=== PATIENT | female | born 1965 | race Caucasian/White ===

== ENCOUNTER 2020-06-25 05:41 | Observation (INO) ==
--- NOTE | 2020-06-09 13:13 | PAT Medication Instructions ---
Medication Instructions Date of Service June 09, 2020 Home Medications Ca carb-Ca gluc-Mg ox-Mg gluco [Calcium Magnesium] 1 tab PO QAM ascorbic acid (vitamin C) [Vitamin C] 2 cap PO BID milk zeemgdm-CJK-ekgixx-turmer [Liver Complex] 1 tab PO BID multivitamin with minerals [Vitality Stress Pack For Women] 1 pkg PO QAM STOP taking 2 weeks before surgery milk mamnbty-DMO-znhcmd-turmer [Liver Complex] 1 tab PO BID DO NOT take the morning of surgery Ca carb-Ca gluc-Mg ox-Mg gluco [Calcium Magnesium] 1 tab PO QAM ascorbic acid (vitamin C) [Vitamin C] 2 cap PO BID multivitamin with minerals [Vitality Stress Pack For Women] 1 pkg PO QAM Take evening before surgery ascorbic acid (vitamin C) [Vitamin C] 2 cap PO BID OTHERWISE NOTHING TO EAT OR DRINK AFTER MIDNIGHT Other Notes If you have any questions please call us at [phone] or [phone] or [phone] or [phone]
--- NOTE | 2020-06-09 13:25 | Anesthesiology Consultation ---
Date of Service June 09, 2020 Assessment & Plan (1) Encounter for pre-operative examination: Chart Review Chart Review: Acceptable Risk for Surgery (pending preop Covid testing ) and Patient seen in Pre Admission Testing Per PAT appt on 06/09/20, pt resides in [facility]. Travels to [facility] for medical appts. No other travel. Wears mask in public. No known Covid positive contacts or Covid related symptoms. Scheduled for preop Covid testing scheduled 06/22/20. Educated on importance of self quarantining, social distancing and wearing mask in public both for the patient and household contacts. Teaching & Discussion Pre-Anesthesia Teaching/Discussion Notes: Instructed NPO after midnight before surgery,except medications with 15 cc of water. Medication instructions provided according to the [facility] guidelines. History Surgery Operation Date: 06/25/20 09:00 Proposed Procedures p Hysteroscopy Polypectomy w/Myosure - Kala Daniel MD s Dilation and Curettage - Kala Daniel MD Height/Weight Height: 5 ft 5 in Weight: 81.2 kg Allergies Allergy/AdvReac Type Severity Reaction Status Date / Time No Known Allergies Allergy Verified 06/09/20 12:47 Medications Home Medications Medication Instructions Recorded Confirmed Last Taken Ca carb-Ca gluc-Mg ox-Mg gluco 1 tab PO QAM 06/09/20 06/09/20 Unknown [Calcium Magnesium] ascorbic acid (vitamin C) [Vitamin 2 cap PO BID 06/09/20 06/09/20 Unknown C] milk uojtohd-ISS-ucshhm-turmer 1 tab PO BID 06/09/20 06/09/20 Unknown [Liver Complex] multivitamin with minerals 1 pkg PO QAM 06/09/20 06/09/20 Unknown [Vitality Stress Pack For Women] Past Medical History Medical History Anxiety Stable and controlled Heavy period Hypertension No meds needed per patient Exercise / Class Metabolic Activity II 4-5 Yardwork/Stairs/Walk up hill (one flight of stairs - no chest pain or SOB) Past Surgical History Surgical History [place] teeth extracted Past Anesthesia History No Family Hx of Anesthesia Complications No previous history of anesthesia History of PONV Hx of Motion Sickness (in a boat ) Social History Smoking Status: Never smoker Do You Dip or Chew Tobacco: No Hx Alcohol Use: No Hx Substance Use: No substance use type: does not use Review of Systems Occ snoring- no recent issues Patient denies chest pain, shortness of breath, dyspnea on exertion, reflux, cough, wheezing, palpitations. No hx of seizures, stroke, RI. No hx of blood clots or blood transfusions Physical Exam Vital Signs Last Vital Signs Temp 36.5 C 06/09/20 12:56 Pulse 78 06/09/20 12:56 Resp 18 06/09/20 12:56 BP 181/119 H 06/09/20 12:56 Pulse Ox 97 06/09/20 12:56 Manual BP= 178/100 (BP usually 160s systolically- did recommend patient get set up with PCP in near future to discuss HTN) Constitutional no acute distress ENMT Mouth: no TMJ clicking Thyromental Distance: > or= 3.5 Finger Breadths (3.5) Mallampati Class: I Full dentures on top and bottom Neck + limited neck extension Respiratory normal respiratory effort; no respiratory distress Auscultation: lungs clear to auscultation bilaterally; no wheezes Cardiovascular Rate/Rhythm: regular rate and regular rhythm Heart Sounds: no murmur Vessels: no carotid bruit Musculoskeletal Spine: no pain with cervical ROM Neurologic moves all extremities Psychiatric Orientation: alert Testing Laboratory Results 06/09/20 13:50 06/09/20 13:50 PT 10.9 Seconds (9.0-12.0) 06/09/20 13:50 INR 1.0 (0.9-1.1) 06/09/20 13:50 APTT 29.3 Seconds (21.0-31.0) 06/09/20 13:50 Blood Type A Positive 06/09/20 13:50 Antibody Screen NEGATIVE 06/09/20 13:50 06/09/20= AST: 17 ALT: 25 ALK PHOS: 63 Electrocardiogram Date: 06/09/20 Normal sinus rhythm with sinus arrhythmia at 63 bpm.
[2020-06-09 15:50] LABS: Basophils # (auto) 0.02 K/uL (0-0.2); Basophils % (auto) 0.4 %; Eosinophils # (auto) 0.08 K/uL (0-0.5); Eosinophils % (auto) 1.6 %; Hematocrit (blood only) 39.8 % (37-47); Hemoglobin 12.8 g/dL (12.0-16.0); Immature Granulocytes # (auto) 0.01 K/uL (0.00-0.02); Immature Granulocytes % (auto) 0.2 %; Lymphocytes # (auto) 1.41 K/uL (1.2-3.4); Lymphocytes % (auto) 28.3 %; Mean Corpuscular Hemoglobin 25.8 pg (25-34); Mean Corpuscular Hgb Conc 32.2 g/dL (32-36); Mean Corpuscular Volume 80.2 fL (80-100); Mean Platelet Volume 11.6 fL (7.4-10.4); Monocytes # (auto) 0.36 K/uL (0.11-0.59); Monocytes % (auto) 7.2 %; Neutrophils % (auto) 62.3 %; Platelet Count 219 K/uL (130-400); RDW Standard Deviation 41.1 fL (36.4-46.3); Red Blood Count 4.96 M/uL (4.2-5.4); White Blood Count 4.98 K/uL (4.8-10.8)
[2020-06-09 16:07] LABS: Partial Thromboplastin Ratio 1.1; Partial Thromboplastin Time 29.3 Seconds (21.0-31.0); Prothrombin Time 10.9 Seconds (9.0-12.0)
[2020-06-09 16:15] LABS: Potassium 4.1 mmol/L (3.5-5.1)
[2020-06-09 16:16] LABS: BUN Creatinine Ratio 16.7 (10-20); Calcium 9.3 mg/dl (8.5-10.1); Creatinine Clr Calc Pharmacy 102.9 ml/min; Est GFR (African American) 115.8; Est GFR (Non-African American) 99.9
[2020-06-09 16:20] LABS: Alanine Aminotransferase 25 U/L (12-78); Alkaline Phosphatase 63 U/L (45-117); Aspartate Aminotransferase 17 U/L (15-37); Bilirubin Direct < 0.1 mg/dl (0-0.2); Bilirubin,Total 0.3 mg/dl (0.2-1); Total Protein 7.8 gm/dl (6.4-8.2)
--- NOTE | 2020-06-09 19:26 | Electrocardiogram Report ---
Test Reason : Blood Pressure : / mmHG Vent. Rate : 063 BPM Atrial Rate : 063 BPM P-R Int : 176 ms QRS Dur : 080 ms QT Int : 390 ms P-R-T Axes : 042 043 012 degrees QTc Int : 399 ms Normal sinus rhythm with sinus arrhythmia Normal ECG No previous ECGs available Confirmed by Anatoliy Osman ([id number]) on 06/09/2020 7:26:19 PM Referred By: Kala Daniel Confirmed By:Isak Osman
[2020-06-25] MEDS ORDERED: SODIUM CHLORIDE 0.9% 1000ML 1,000 ML IV SCH (06:00)
[2020-06-25] MEDS ORDERED: LR 15ML/HR IV SCH (06:00)
[2020-06-25] MEDS ORDERED: ACETAMINOPHEN 1000 MG/100 ML IV IV ONE (06:27)
[2020-06-25] MEDS ORDERED: ONDANSETRON INJ 2 MG/ML 2 ML VIAL ONE (06:36)
[2020-06-25] MEDS ORDERED: PROPOFOL IV EMULSION 10 MG/ML 20 ML VIAL IV ONE (06:36)
[2020-06-25] MEDS ORDERED: MIDAZOLAM HCL 1 MG/ML 2ML VIAL ONE (06:36)
[2020-06-25] MEDS ORDERED: DEXAMETHASONE SOD INJ 4 MG/ML VIAL ONE (06:36)
[2020-06-25] MEDS ORDERED: LIDOCAINE HCL 2% 2 ML VIAL/AMP(20MG/ML) INFIL ONE (06:36)
[2020-06-25] MEDS ORDERED: fentaNYL citrate 100 MCG/2 ML VIAL ONE (06:36)
[2020-06-25] MEDS ORDERED: SILVER NITR/POTASSIUM NITRATE APPLICATOR ONE (06:51)
[2020-06-25] MEDS ORDERED: miSOPROStoL 200 MCG TAB ONE (06:51)
[2020-06-25] MEDS ORDERED: FERRIC SUBSULFATE 8 GM VIAL ONE (06:51)
[2020-06-25] MEDS ORDERED: METHYLERGONOVINE MALEATE 0.2 MG/ML AMP ONE (06:51)
[2020-06-25] MEDS ORDERED: ONDANSETRON INJ 2 MG/ML 2 ML VIAL IV PRN ×3 (06:58→13:00)
[2020-06-25] MEDS ORDERED: MEPERIDINE HCL 25 MG/ML CARP/VIAL IV PRN (06:58)
[2020-06-25] MEDS ORDERED: ATROPINE SULFATE 0.1 MG/ML 10ML SYR IV PRN (06:58)
[2020-06-25] MEDS ORDERED: fentaNYL citrate 100 MCG/2 ML VIAL IV PRN (06:58)
[2020-06-25] MEDS ORDERED: HYDROmorphone INJ 1 MG/ML SYRINGE IV PRN (06:58)
[2020-06-25] MEDS ORDERED: PHENYLEPHRINE 100MCG/ML 5ML SYR IV PRN (06:58)
--- NOTE | 2020-06-25 07:00 | History & Physical Bridge Note ---
Date of Service June 25, 2020 History & Physical Bridge Note I have examined the patient, reviewed the History & Physical and in the interval since the performance of the History & Physical I have noted the following changes of clinical significance: no changes noted
[2020-06-25] MEDS ORDERED: GLYCOPYRROLATE 0.2 MG/ML VIAL ONE (07:18)
[2020-06-25] MEDS ORDERED: PHENYLEPHRINE 100MCG/ML 5ML SYR ONE (07:18)
[2020-06-25] MEDS ORDERED: KETOROLAC 30 MG/ML VIAL ONE (08:06)
--- NOTE | 2020-06-25 08:12 | Post Operative Brief Note ---
Immediate Post Op Note v1 Date of Surgery June 25, 2020 Pre & Post Diagnosis Operation Date: 06/25/20 07:00 Pre-Op Diagnosis: Abnormal Uterine Bleeding Endometrial Polyp Post-Op Diagnosis: Abnormal Uterine Bleeding Endometrial Polyp I identified the patient and participated in the time-out.: Yes Procedure Operation Date: 06/25/20 07:00 Actual Procedures p Evaluation Under Anesthesia, Hysteroscopy Polypectomy with Myosure(Not Applicable) - Kala Daniel MD s Dilation and Curettage(Not Applicable) - Kala Daniel MD Surgeon Kala Daniel MD Recovery Auditor RAMON Sweeney Estimated Blood Loss 10 Findings Consistent with Post-Op Diagnosis Anesthesia Type MAC Complications none Disposition Accompanied Patient To Recovery: Yes Disposition: Recovery Room
[2020-06-25] MEDS ORDERED: METOCLOPRAMIDE HCL INJ 5 MG/ML 2 ML VIAL IV PRN (08:30)
[2020-06-25] MEDS ORDERED: ACETAMINOPHEN 500 MG TAB PO PRN (08:30)
[2020-06-25] MEDS: LABETALOL HCL IV 5 MG/ML 20ML IV PRN ×3 (08:45→08:56)
[2020-06-25] MEDS ORDERED: HydrALAZINE HCL 20 MG/ML VIAL IV STA ×2 (09:07→09:35)
[2020-06-25] MEDS ORDERED: HydrALAZINE HCL 20 MG/ML VIAL ONE (09:08)
--- NOTE | 2020-06-25 09:33 | Anesthesiology Progress Note ---
Date of Service June 25, 2020 Anesthesia Post Procedure Vital Signs Vital Signs: Temp Pulse Pulse Resp BP BP Pulse Ox 06/25/20 09:20 36.4 C L 69 12 163/96 H 97 06/25/20 09:10 61 18 180/99 H 95 06/25/20 09:00 63 24 159/98 H 95 06/25/20 08:50 67 26 H 169/100 H 96 06/25/20 08:40 69 24 159/103 H 100 06/25/20 08:30 71 20 146/97 H 99 06/25/20 08:23 36.4 C L 75 14 153/98 H 100 06/25/20 06:07 36.6 C 69 16 184/109 H 97 Transfer of Care Handoff Completed per policy Notes Mental Status: alert / awake / arousable Patient Amnestic to Procedure: Yes Nausea / Vomiting: adequately controlled Pain: adequately controlled Airway Patency, RR, SpO2: stable & adequate BP & HR: stable & adequate and see Notes below Hydration State: stable & adequate Anesthetic Complications: no major complications apparent and Pt Satisfied with anesthetic care Notes: The patient has untreated HTN. She was given labetalol and hydralazine in PACU. Her BP is elevated but stable. The patient was encouraged to follow up with her PCP for BP management.
[2020-06-25] MEDS ORDERED: METOPROLOL TARTRATE 1 MG/ML VIAL IV STA (09:59)
[2020-06-25] MEDS ORDERED: METOPROLOL TARTRATE 1 MG/ML VIAL IV ONE (10:07)
[2020-06-25] MEDS ORDERED: LISINOPRIL/HCTZ 10/12.5MG TAB PO SCH (10:45)
--- NOTE | 2020-06-25 10:56 | History & Physical Report ---
Date of Service June 25, 2020 Assessment & Plan (1) Chest pain: (2) Uncontrolled hypertension: Admit patient to med/telemetry Obtain CBC, CMP, magnesium, troponin, CK-MB, TSH, d dimer obtain echocardiogram b/l venous doppler lower ext 2/2 to edema/pain Start 2 med regimen with Lisinopril/HCTZ 20/12.5mg Labetolol 5mg Q6h prn (3) Status post D&C: POD #0 D&C, hysteroscopy with polypectomy by Dr. Thacker will consult ALCOHOLIC COUNSELOR for post op management/pain control DVT prophylaxis: SCDS Disposition: admit to med tele, rule out ACS, treat uncontrolled HTN Follow up: Patient does not follow with PCP and treats with home herbal remedies. She will need to be established in outpatient setting at discharge Patient was seen and examined in collaboration with Dr. Bashir, please see addendum History of Present Illness Chief Complaint: Uncontrolled hypertension postoperatively and left-sided chest pain. Primary Care Provider: NO PCP This is a 55-year-old [facility] female who has a significant past medical history of uncontrolled hypertension, anxiety, dysfunctional uterine bleeding who presents to [facility] today for elective D&C, [facility] Patient tolerated the procedure well; however, postoperatively patient remained significantly hypertensive despite attempts to reduce blood pressure with IV antihypertensives. Patient does not take any prescription medications at baseline and takes homemade herbal remedies. She states at baseline her blood pressure is typically systolically 160-1 80 over 90s to 100s. She does not monitor her blood pressure on a regular basis. She does not see any primary care provider. In ASU patient did develop left-sided nonradiating chest discomfort at approximately 9:50 AM and lasted for 20 minutes. Currently chest pain has resolved. She described it as an ache/heaviness. She does admit to feeling similar chest discomfort in past but is unsure during which scenario this occurred. She denies any associated shortness of breath, diaphoresis, nausea, dizziness, lightheadedness, headache, change in vision, change in hearing. Postoperatively she does elicit some mild lower abdominal discomfort but denies any fever, chills, sweats, palpitations, emesis, dysuria, increased urgency or frequency with urination, melena, medic easier. She did urinate postoperatively without difficulty. at bedside states they cook with raw salt and no processed foods. Denies NSAID use. We have been called down by anesthesiology to evaluate for possible admission. is at bedside. In ASU patient's blood pressure was 150s over 100, 160/90 and eventual 181/117. During the latter she did develop left-sided chest discomfort which has since resolved. She has received a total of 50 mg of IV labetalol, last given at 8:56 AM as well as 20 mg of IV hydralazine, last given at 9:43 AM. She also received 5 mg of IV metoprolol around 10:20 AM. EKG was ordered which revealed sinus tachycardia with no ST or T wave changes. Ventricular rate was 101 bpm. Allergies Allergy/AdvReac Type Severity Reaction Status Date / Time No Known Allergies Allergy Verified 06/25/20 05:59 Home Medications Home Medications Medication Instructions Recorded Confirmed Type Calcium Magnesium 1 tab PO QAM 06/09/20 06/25/20 History Liver Complex 1 tab PO BID 06/09/20 06/25/20 History ascorbic acid (vitamin C) 2 cap PO BID 06/09/20 06/25/20 History multivitamin with minerals 1 pkg PO QAM 06/09/20 06/25/20 History Past Med/Surg History Medical History Anxiety Stable and controlled Heavy period Hypertension No meds needed per patient Surgical History [place] teeth extracted Family History Brother Myocardial infarction Father Heart disease Denies family history of Diabetes Stroke Social History Smoking Status: Never smoker Second Hand Exposure: No; Do You Dip or Chew Tobacco: No; Hx Alcohol Use: No Hx Substance Use: No Preferred Language: Lao Communication Ability: Effective Beliefs That Will Affect Care: None Current Living Situation: Family Current Living Situation Comment: family Feels Safe at Home: Yes Safety Concerns: Feels Safe At This Time Assistive Devices: Denture - Upper, Denture - Lower and Glasses Review of Systems Review of Systems: All systems reviewed & are unremarkable except as noted in HPI & below Physical Exam Physical Exam: Constitutional: WD/WN, female, vitals as above, NAD, sitting up in bed, pleasant, answers questions appropriately, minimal eye contact, frequently looking at Head: Normocephalic, Atraumatic Eyes: PERRL, conjunctivae normal, anicteric sclerae ENMT: external ear and nose normal, oropharynx normal Neck: trachea midline, no thyromegaly normal visual inspection Respiratory: normal respiratory effort, lungs clear to auscultation, no wheeze, rales, rhonchi. Normal insp/exp effort, no accessory muscle use Cardiovascular: RRR, 2/6 KATHRYN noted RUSB, no radiation, bilateral lower extremity lymphedema, varicosities noted, bilateral teds in place vessels: no JVD or carotid bruit Chest: normal inspection of chest Abdomen: normal bowel sounds, soft, mild discomfort to palpation to lower abdomen, no rebound, no guarding, no rigidity,no hepatosplenomegaly Musculoskeletal: no cyanosis or clubbing, extremities motor strength 5/5 Skin: no rashes, warm and dry normal turgor Neurologic: PERRL, EOMI, accommodation nl, no face palsy, no dysarthria CN's II-XI intact bilaterally and moves all extremities Psychiatric: A+Ox3, euthymic affect Lymphatic: no cervical or axillary lymphadenopathy : deferred Results & Data Results & Data ([facility]) Vital Signs (Past 12 Hours) Vital Signs Temp Pulse Pulse Pulse Resp BP BP 06/25/20 10:13 94 H 195/114 H 06/25/20 09:20 36.4 C L 69 12 06/25/20 09:10 61 18 06/25/20 09:00 63 24 06/25/20 08:50 67 26 H 06/25/20 08:40 69 24 06/25/20 08:30 71 20 06/25/20 08:23 36.4 C L 75 14 06/25/20 06:07 36.6 C 69 16 184/109 H BP Pulse Ox 06/25/20 10:13 06/25/20 09:20 163/96 H 97 06/25/20 09:10 180/99 H 95 06/25/20 09:00 159/98 H 95 06/25/20 08:50 169/100 H 96 06/25/20 08:40 159/103 H 100 06/25/20 08:30 146/97 H 99 06/25/20 08:23 153/98 H 100 06/25/20 06:07 97 Laboratory Results Preop labs 06/09/2020 CBC: WBC 4.98, H&H 12.8 and 39.8, platelet 219 BMP: Sodium 141, K4.1, chloride 109, BUN 11, creatinine 0.65, LFTs WNL Urine negative Medications Administered Labetalol HCl (Labetalol Hcl Iv 5 Mg/Ml 20ml) 5 mg IV Q5M PRN PRN Reason: PACU Use-SBP>160 or DBP>100 Stop: 06/25/20 14:58 Last Admin: 06/25/20 08:56 Dose: 5 mg Documented by: [id number] Cosigned by: [id number] Admin: 06/25/20 08:50 Dose: 5 mg Documented by: [id number] Cosigned by: [id number] Admin: 06/25/20 08:45 Dose: 5 mg Documented by: [id number] Cosigned by: [id number] Discontinued Medications Ferric Subsulfate (Ferric Subsulfate 8 Gm Vial) Confirm Administered Dose 8 gm .ROUTE .STK-MED ONE Stop: 06/25/20 06:52 Last Admin: 06/25/20 08:20 Dose: Not Given Documented by: [id number] Hydralazine HCl (Hydralazine Hcl 20 Mg/Ml Vial) 10 mg IV NOW STA Stop: 06/25/20 09:08 Last Admin: 06/25/20 09:09 Dose: 10 mg Documented by: [id number] Hydralazine HCl (Hydralazine Hcl 20 Mg/Ml Vial) 10 mg IV NOW STA Stop: 06/25/20 09:36 Last Admin: 06/25/20 09:42 Dose: 10 mg Documented by: [id number] Lactated Ringer's (Lr) 1,000 mls @ 15 mls/hr IV .Q24H MANNY Stop: 06/26/20 05:59 Last Infusion: 06/25/20 07:02 Dose: 0 mls/hr Documented by: [id number] Admin: 06/25/20 06:31 Dose: 15 mls/hr Documented by: [id number] Methylergonovine Maleate (Methylergonovine Maleate 0.2 Mg/Ml Amp) Confirm Administered Dose 0.2 mg .ROUTE .STK-MED ONE Stop: 06/25/20 06:52 Last Admin: 06/25/20 08:20 Dose: Not Given Documented by: [id number] Metoprolol Tartrate (Metoprolol Tartrate 1 Mg/Ml Vial) 5 mg IV NOW STA Stop: 06/25/20 10:00 Last Admin: 06/25/20 10:13 Dose: 5 mg Documented by: [id number] Misoprostol (Misoprostol 200 Mcg Tab) Confirm Administered Dose 200 mcg .ROUTE .STK-MED ONE Stop: 06/25/20 06:52 Last Admin: 06/25/20 08:20 Dose: Not Given Documented by: [id number] Silver Nitrate/Potassium Nitrate (Silver Nitr/Potassium Nitrate Applicator) Confirm Administered Dose 3 appl .ROUTE .STK-MED ONE Stop: 06/25/20 06:52 Last Admin: 06/25/20 08:20 Dose: Not Given Documented by: [id number] ECG Rate (beats per minute): 101 Rhythm: sinus tachycardia Code Status & VTE Plan Code Status Full code VTE Prophylaxis Plan VTE Prophylaxis will be ordered: Yes Reason for no VTE drug order: Contraindicated Supervising Physician Co-Signing Physician Notes Patient is a 55-year-old female with history of hypertension, anxiety, DU B and other medical problems was seen and examined after having D&C and polypectomy today. Patient was noted to be hypertensive and so was admitted for management of hypertension. She denies any significant pain at the site of surgery. Also denies any shortness of breath, dizziness, nausea, abdominal pain. Reports transient left-sided chest discomfort which currently resolved. Please review HPI for complete details of presentation. On exam patient is moderately built and nourished, no apparent distress, normocephalic atraumatic, lungs are clear to auscultation, S1-S2,+ soft murmur, abdomen soft, nontender, normal bowel sounds, alert, awake, oriented, no focal deficits on exam, bilateral lower extremity edema. Patient is admitted for management of hypertensive urgency, chest pain rule out ACS. Patient currently is not on any antihypertensives at home. We will start her on lisinopril, HCTZ. Hydralazine p.o. as needed. Obtain echo. Trend cardiac enzymes and repeat EKG in the morning. ALCOHOLIC COUNSELOR will be consulted for management of post D&C. Monitor for any bleeding issues. I personally reviewed the record. Patient is interviewed and examined at bedside. Patient's care is coordinated with Floresita Muniz PA-C. Please refer to the documentation above for details of patient's presentation and for discussion of other issues.
[2020-06-25 11:27] LABS: Basophils # (auto) 0.01 K/uL (0-0.2); Basophils % (auto) 0.2 %; Eosinophils # (auto) 0.01 K/uL (0-0.5); Eosinophils % (auto) 0.2 %; Hematocrit (blood only) 43.7 % (37-47); Hemoglobin 14.4 g/dL (12.0-16.0); Immature Granulocytes # (auto) 0.02 K/uL (0.00-0.02); Immature Granulocytes % (auto) 0.3 %; Lymphocytes # (auto) 0.63 K/uL (1.2-3.4); Mean Corpuscular Hemoglobin 26.2 pg (25-34); Mean Corpuscular Volume 79.5 fL (80-100); Mean Platelet Volume 10.4 fL (7.4-10.4); Monocytes # (auto) 0.07 K/uL (0.11-0.59); Monocytes % (auto) 1.1 %; Neutrophils # (auto) 5.59 K/uL (1.4-6.5); Neutrophils % (auto) 88.2 %; Platelet Count 175 K/uL (130-400); RDW Coefficient of Variation 14.2 % (11.5-14.5); RDW Standard Deviation 40.8 fL (36.4-46.3); White Blood Count 6.33 K/uL (4.8-10.8)
[2020-06-25 11:51] LABS: Alanine Aminotransferase 24 U/L (12-78); Aspartate Aminotransferase 15 U/L (15-37); BUN Creatinine Ratio 13.5 (10-20); Blood Urea Nitrogen 9 mg/dl (7-18); Calcium 8.8 mg/dl (8.5-10.1); Carbon Dioxide 30 mmol/L (21-32); Chloride 105 mmol/L (98-107); Creatinine Clr Calc Pharmacy 98.1 ml/min; Est GFR (African American) 114.1; Est GFR (Non-African American) 98.5; Glucose 129 mg/dl (70-99); Magnesium 1.9 mg/dl (1.8-2.4); Potassium 3.4 mmol/L (3.5-5.1); Sodium 140 mmol/L (136-145)
[2020-06-25 12:02] LABS: Alkaline Phosphatase 69 U/L (45-117); Bilirubin,Total 0.3 mg/dl (0.2-1); Creatine Kinase MB 1.5 ng/ml (0.5-3.6); Globulin 4.2 gm/dl (2.5-4.0); Total Protein 8.2 gm/dl (6.4-8.2); Troponin I < 0.015 ng/ml (0-0.045)
--- NOTE | 2020-06-25 12:02 | Operative Report (OR) ---
DATE OF OPERATION: 06/25/2020 PREOPERATIVE DIAGNOSES: The patient is a 55-year-old perimenopausal female with history of abnormal uterine bleeding, heavy periods, and pelvic ultrasound suggesting endometrial polyps and fibroids. POSTOPERATIVE DIAGNOSES: The patient is a 55-year-old perimenopausal female with history of abnormal uterine bleeding, heavy periods, and pelvic ultrasound suggesting endometrial polyps and fibroids. PROCEDURE: Examination under anesthesia, hysteroscopy, polypectomy with MyoSure and D and C (dilatation and curettage). SURGEON: Kala Daniel MD SEMICONDUCTOR PROCESSING TECHNICIAN: RAMON Howell ESTIMATED BLOOD LOSS: 10 mL. ANESTHESIOLOGIST: Dr. Rajput. ANESTHESIA: MAC COMPLICATIONS: None. DRAINS: Straight catheter drained 400 mL of clear urine. FINDINGS: Examination under anesthesia revealed anteverted 8- to 10-week size of uterus and nonpalpable adnexa. Stage II cystoecele, rectocele and enterocele. Cervical polyp at the os. Hysteroscopic findings, there were multiple polyps in the endometrial cavity ranging from 0.5 to 1 cm and thickened, irregular endometrium. DESCRIPTION OF PROCEDURE: The patient was taken to the operating room where anesthesia was given without difficulty. She was placed in dorsal lithotomy position, prepared and draped in usual sterile fashion. Straight catheter was used to drain the bladder. A 400 mL of clear urine was obtained. An exam under anesthesia was done with the above findings, gloves were changed, and a speculum was placed in the patient's vagina. Bladder was retracted with El speculum. Cervix was visualized, grasped with a single tooth tenaculum. There was a cervical polyp at the cervical os, which was removed with the polyp forceps and sent to the pathology. Uterus was sounded to be 11 cm and the cervix was dilated with dilators until #7 and then MyoSure hysteroscope was gotten ready, placed in the cervix. Normal saline was started. Uterine cavity was visualized. There were multiple polyps ranging from 0.5 to 1 cm and around the posterior and right uterine rodgers. The left superior uterine wall was also irregularly thickened. Normal tubular ostia were visualized. Then MyoSure Lite device was introduced from hysteroscope. Those polyps were removed, excised completely under direct visualization and no more polyps were seen. Pictures were taken before and after. The hysteroscope was removed, fluid was removed, and then with a sharp curette, uterine cavity was curetted in its entirety and a moderate amount of tissue was obtained, sent to the pathology. The procedure was ended. Single tooth tenaculum was removed. There was no bleeding from tenaculum site neither from the cervix. All instruments were removed. The patient was cleaned, dried, taken out from lithotomy position. She tolerated the procedure well. Sponge and instrument count was correct x3. She was taken to recovery room in stable condition. I attest to the content of the Intraoperative Record and any orders documented therein. Any exceptions are noted below. JIN
[2020-06-25] MEDS ORDERED: POLYETHYLENE (MIRALAX) 17 GM PACK PO PRN (13:00)
[2020-06-25] MEDS ORDERED: ACETAMINOPHEN 325 MG TAB PO PRN (13:00)
[2020-06-25] MEDS ORDERED: ALUMINUM/MAGNESIUM SUSP 30 ML UDC PO PRN (13:00)
--- NOTE | 2020-06-25 13:00 | Ultrasound Report ---
BILATERAL LOWER EXTREMITY VENOUS DOPPLER HISTORY: Bilateral leg edema, pain COMPARISON STUDY: None. FINDINGS: There is normal compressibility, flow, and augmentation within the bilateral lower extremit y deep venous systems. IMPRESSION: No DVT within the right or left lower extremity. ACT 112: Negative or not required by law. Electronically signed by: Escobar Rhoades M.D. 06/25/2020 12:58 PM
[2020-06-25 13:27] LABS: D Dimer 1470 ug/L FEU (0-500)
[2020-06-25] MEDS: LISINOPRIL/HCTZ 20/12.5MG 1 TAB TAB PO SCH (13:30)
[2020-06-25] MEDS ORDERED: LABETALOL HCL IV 5 MG/ML 20ML IV SCH (14:00)
[2020-06-25] MEDS ORDERED: POTASSIUM CHLORIDE 20 MEQ TABCR PO ONE (14:11)
[2020-06-25] MEDS ORDERED: HydrALAZINE 10 MG TAB PO PRN (14:32)
[2020-06-25] MEDS ORDERED: OPTIRAY 320 125ml IV ONE (17:17)
--- NOTE | 2020-06-25 17:44 | CT Scan Report ---
CT ANGIOGRAPHY OF THE CHEST, PULMONARY EMBOLUS PROTOCOL CLINICAL HISTORY: Shortness of breath and chest pain. Evaluate for pulmonary embolus. COMPARISON STUDY: No previous studies for comparison. TECHNIQUE: Following IV administration of 120 mL of Optiray-320, helical axial images of the chest we re obtained utilizing the pulmonary embolus protocol. Maximal intensity projections and sagittal and coronal reformats were viewed on an independent 3D workstation. IV contrast was administered withou t complication. Automated exposure control was utilized for the study. A dose lowering technique wa s utilized adhering to the principles of ALARA. CT DOSE: 249.70 mGy.cm FINDINGS: No pulmonary emboli are identified. Mild cardiomegaly is noted. There is no thoracic aorti c dissection. No pericardial effusion is noted. No enlarged thoracic lymph nodes are noted. The centr al airways are patent. Linear opacities reflect atelectasis. There is no consolidation to suggest pne umonia. There is no pneumothorax or pleural effusion. No suspicious lesions within the bony thorax ar e noted. There are calcifications within the right hepatic dome. IMPRESSION: 1. No pulmonary emboli identified. 2. No acute findings within the chest. 3. Linear opacities within the lungs consistent with atelectasis. 4. Mild cardiomegaly. ACT 112: Negative or not required by law. Electronically signed by: Lucian Gamez M.D. 06/25/2020 5:43 PM
[2020-06-25] MEDS: ASCORBIC ACID 500 MG TAB PO SCH (20:49)
[2020-06-26 06:37] LABS: Hematocrit (blood only) 40.1 % (37-47); Hemoglobin 12.9 g/dL (12.0-16.0); Mean Corpuscular Hemoglobin 25.5 pg (25-34); Mean Corpuscular Hgb Conc 32.2 g/dL (32-36); Mean Corpuscular Volume 79.4 fL (80-100); Mean Platelet Volume 10.6 fL (7.4-10.4); Platelet Count 207 K/uL (130-400); RDW Coefficient of Variation 14.6 % (11.5-14.5); RDW Standard Deviation 41.9 fL (36.4-46.3); Red Blood Count 5.05 M/uL (4.2-5.4); White Blood Count 9.04 K/uL (4.8-10.8)
[2020-06-26 07:08] LABS: BUN Creatinine Ratio 15.5 (10-20); Calcium 9.7 mg/dl (8.5-10.1); Creatinine Clr Calc Pharmacy 100.3 ml/min; Est GFR (African American) 115.3; Est GFR (Non-African American) 99.4; Magnesium 2.1 mg/dl (1.8-2.4); Potassium 3.5 mmol/L (3.5-5.1)
[2020-06-26] MEDS: ASCORBIC ACID 500 MG TAB PO SCH (08:05)
[2020-06-26] MEDS: LISINOPRIL/HCTZ 20/12.5MG 1 TAB TAB PO SCH (08:06)
--- NOTE | 2020-06-26 08:33 | Obstetrical Progress Note ---
Date of Service June 26, 2020 Assessment & Plan Admission and Anticipated Discharge Date Admission Date: June 25, 2020 Subjective Patient is seen and examined. She feels well, no complaints. Wants to go home Pain is under control with oral meds. Ambulating without dizziness Voiding without difficulty Tolerating regular diet with out N&V Flatus + BM neg No vaginal Bleeding is minimal No fever/ chills/ CP/ SOB/ N&V/ Leg pain Vital Signs Temp Pulse Pulse Resp BP Pulse Ox 06/26/20 07:08 37.0 C 81 19 138/83 95 06/26/20 04:13 37.1 C 78 20 123/74 94 06/26/20 00:26 37.0 C 80 19 137/79 95 06/25/20 23:03 89 Lab Results 06/09/20 06/09/20 06/09/20 Range/Units 13:50 13:50 13:50 WBC 4.98 (4.8-10.8) K/uL RBC 4.96 (4.2-5.4) M/uL Hgb 12.8 (12.0-16.0) g/dL Hct 39.8 (37-47) % MCV 80.2 (80-100) fL MCH 25.8 (25-34) pg MCHC 32.2 (32-36) g/dL RDW Std Deviation 41.1 (36.4-46.3) fL RDW Coeff of [place] 14.0 (11.5-14.5) % Plt Count 219 (130-400) K/uL MPV 11.6 H (7.4-10.4) fL Immature Gran % (Auto) 0.2 % Neut % (Auto) 62.3 % Lymph % (Auto) 28.3 % [place] % (Auto) 7.2 % Eos % (Auto) 1.6 % Baso % (Auto) 0.4 % Neut # (Auto) 3.10 (1.4-6.5) K/uL Lymph # (Auto) 1.41 (1.2-3.4) K/uL [place] # (Auto) 0.36 (0.11-0.59) K/uL Eos # (Auto) 0.08 (0-0.5) K/uL Baso # (Auto) 0.02 (0-0.2) K/uL Immature Gran # (Auto) 0.01 (0.00-0.02) K/uL PT 10.9 (9.0-12.0) Seconds INR 1.0 (0.9-1.1) APTT 29.3 (21.0-31.0) Seconds PTT Ratio 1.1 D-Dimer (0-500) ug/L FEU Sodium (136-145) mmol/L Potassium (3.5-5.1) mmol/L Chloride (98-107) mmol/L Carbon Dioxide (21-32) mmol/L Anion Gap (3-11) BUN (7-18) mg/dl Creatinine (0.6-1.2) mg/dl Est Cr Clr Drug Dosing ml/min Est GFR ( Amer) Est GFR (Non-Af Amer) BUN/Creatinine Ratio (10-20) Glucose (70-99) mg/dl Calcium (8.5-10.1) mg/dl Magnesium (1.8-2.4) mg/dl Total Bilirubin (0.2-1) mg/dl Direct Bilirubin (0-0.2) mg/dl AST (15-37) U/L ALT (12-78) U/L Alkaline Phosphatase (45-117) U/L CK-MB (CK-2) (0.5-3.6) ng/ml Troponin I (0-0.045) ng/ml Total Protein (6.4-8.2) gm/dl Albumin (3.4-5.0) gm/dl Globulin (2.5-4.0) gm/dl Albumin/Globulin Ratio (0.9-2) TSH (0.300-4.500) uIu/ml POC Ur Test (NEG) Blood Type A Positive Antibody Screen NEGATIVE 06/09/20 06/09/20 06/25/20 Range/Units 13:50 13:50 11:12 WBC 6.33 (4.8-10.8) K/uL RBC 5.50 H (4.2-5.4) M/uL Hgb 14.4 (12.0-16.0) g/dL Hct 43.7 (37-47) % MCV 79.5 L (80-100) fL MCH 26.2 (25-34) pg MCHC 33.0 (32-36) g/dL RDW Std Deviation 40.8 (36.4-46.3) fL RDW Coeff of [place] 14.2 (11.5-14.5) % Plt Count 175 (130-400) K/uL MPV 10.4 (7.4-10.4) fL Immature Gran % (Auto) 0.3 % Neut % (Auto) 88.2 % Lymph % (Auto) 10.0 % [place] % (Auto) 1.1 % Eos % (Auto) 0.2 % Baso % (Auto) 0.2 % Neut # (Auto) 5.59 (1.4-6.5) K/uL Lymph # (Auto) 0.63 L (1.2-3.4) K/uL [place] # (Auto) 0.07 L (0.11-0.59) K/uL Eos # (Auto) 0.01 (0-0.5) K/uL Baso # (Auto) 0.01 (0-0.2) K/uL Immature Gran # (Auto) 0.02 (0.00-0.02) K/uL PT (9.0-12.0) Seconds INR (0.9-1.1) APTT (21.0-31.0) Seconds PTT Ratio D-Dimer (0-500) ug/L FEU Sodium 141 (136-145) mmol/L Potassium 4.1 (3.5-5.1) mmol/L Chloride 109 H (98-107) mmol/L Carbon Dioxide 28 (21-32) mmol/L Anion Gap 4.0 (3-11) BUN 11 (7-18) mg/dl Creatinine 0.65 (0.6-1.2) mg/dl Est Cr Clr Drug Dosing 102.9 ml/min Est GFR ( Amer) 115.8 Est GFR (Non-Af Amer) 99.9 BUN/Creatinine Ratio 16.7 (10-20) Glucose 86 (70-99) mg/dl Calcium 9.3 (8.5-10.1) mg/dl Magnesium (1.8-2.4) mg/dl Total Bilirubin 0.3 (0.2-1) mg/dl Direct Bilirubin < 0.1 (0-0.2) mg/dl AST 17 (15-37) U/L ALT 25 (12-78) U/L Alkaline Phosphatase 63 (45-117) U/L CK-MB (CK-2) (0.5-3.6) ng/ml Troponin I (0-0.045) ng/ml Total Protein 7.8 (6.4-8.2) gm/dl Albumin 4.0 (3.4-5.0) gm/dl Globulin (2.5-4.0) gm/dl Albumin/Globulin Ratio (0.9-2) TSH (0.300-4.500) uIu/ml POC Ur Test (NEG) Blood Type Antibody Screen 06/25/20 06/25/20 06/25/20 Range/Units 11:12 13:02 Unknown WBC (4.8-10.8) K/uL RBC (4.2-5.4) M/uL Hgb (12.0-16.0) g/dL Hct (37-47) % MCV (80-100) fL MCH (25-34) pg MCHC (32-36) g/dL RDW Std Deviation (36.4-46.3) fL RDW Coeff of [place] (11.5-14.5) % Plt Count (130-400) K/uL MPV (7.4-10.4) fL Immature Gran % (Auto) % Neut % (Auto) % Lymph % (Auto) % [place] % (Auto) % Eos % (Auto) % Baso % (Auto) % Neut # (Auto) (1.4-6.5) K/uL Lymph # (Auto) (1.2-3.4) K/uL [place] # (Auto) (0.11-0.59) K/uL Eos # (Auto) (0-0.5) K/uL Baso # (Auto) (0-0.2) K/uL Immature Gran # (Auto) (0.00-0.02) K/uL PT (9.0-12.0) Seconds INR (0.9-1.1) APTT (21.0-31.0) Seconds PTT Ratio D-Dimer 1470 H* (0-500) ug/L FEU Sodium 140 (136-145) mmol/L Potassium 3.4 L (3.5-5.1) mmol/L Chloride 105 (98-107) mmol/L Carbon Dioxide 30 (21-32) mmol/L Anion Gap 5.0 (3-11) BUN 9 (7-18) mg/dl Creatinine 0.68 (0.6-1.2) mg/dl Est Cr Clr Drug Dosing 98.1 ml/min Est GFR ( Amer) 114.1 Est GFR (Non-Af Amer) 98.5 BUN/Creatinine Ratio 13.5 (10-20) Glucose 129 H (70-99) mg/dl Calcium 8.8 (8.5-10.1) mg/dl Magnesium 1.9 (1.8-2.4) mg/dl Total Bilirubin 0.3 (0.2-1) mg/dl Direct Bilirubin (0-0.2) mg/dl AST 15 (15-37) U/L ALT 24 (12-78) U/L Alkaline Phosphatase 69 (45-117) U/L CK-MB (CK-2) 1.5 (0.5-3.6) ng/ml Troponin I < 0.015 (0-0.045) ng/ml Total Protein 8.2 (6.4-8.2) gm/dl Albumin 4.0 (3.4-5.0) gm/dl Globulin 4.2 H (2.5-4.0) gm/dl Albumin/Globulin Ratio 1.0 (0.9-2) TSH 2.260 (0.300-4.500) uIu/ml POC Ur Test NEG (NEG) Blood Type Antibody Screen 06/26/20 06/26/20 Range/Units 06:13 06:13 WBC 9.04 (4.8-10.8) K/uL RBC 5.05 (4.2-5.4) M/uL Hgb 12.9 (12.0-16.0) g/dL Hct 40.1 (37-47) % MCV 79.4 L (80-100) fL MCH 25.5 (25-34) pg MCHC 32.2 (32-36) g/dL RDW Std Deviation 41.9 (36.4-46.3) fL RDW Coeff of [place] 14.6 H (11.5-14.5) % Plt Count 207 (130-400) K/uL MPV 10.6 H (7.4-10.4) fL Immature Gran % (Auto) % Neut % (Auto) % Lymph % (Auto) % [place] % (Auto) % Eos % (Auto) % Baso % (Auto) % Neut # (Auto) (1.4-6.5) K/uL Lymph # (Auto) (1.2-3.4) K/uL [place] # (Auto) (0.11-0.59) K/uL Eos # (Auto) (0-0.5) K/uL Baso # (Auto) (0-0.2) K/uL Immature Gran # (Auto) (0.00-0.02) K/uL PT (9.0-12.0) Seconds INR (0.9-1.1) APTT (21.0-31.0) Seconds PTT Ratio D-Dimer (0-500) ug/L FEU Sodium 139 (136-145) mmol/L Potassium 3.5 (3.5-5.1) mmol/L Chloride 105 (98-107) mmol/L Carbon Dioxide 27 (21-32) mmol/L Anion Gap 6.0 (3-11) BUN 10 (7-18) mg/dl Creatinine 0.66 (0.6-1.2) mg/dl Est Cr Clr Drug Dosing 100.3 ml/min Est GFR ( Amer) 115.3 Est GFR (Non-Af Amer) 99.4 BUN/Creatinine Ratio 15.5 (10-20) Glucose 114 H (70-99) mg/dl Calcium 9.7 (8.5-10.1) mg/dl Magnesium 2.1 (1.8-2.4) mg/dl Total Bilirubin (0.2-1) mg/dl Direct Bilirubin (0-0.2) mg/dl AST (15-37) U/L ALT (12-78) U/L Alkaline Phosphatase (45-117) U/L CK-MB (CK-2) (0.5-3.6) ng/ml Troponin I (0-0.045) ng/ml Total Protein (6.4-8.2) gm/dl Albumin (3.4-5.0) gm/dl Globulin (2.5-4.0) gm/dl Albumin/Globulin Ratio (0.9-2) TSH (0.300-4.500) uIu/ml POC Ur Test (NEG) Blood Type Antibody Screen PE: General: Alert, orientedx3, NAD CVS: S1S2 RRR Lungs; CTAB Abd: soft, NT, ND, BS+ Incision: Clean, dry, intact Perineum intact, No bleeding Ext; NT, no edema AP: 55 yo s/p EUA, Hysteroscopy, Polypectomy with Myosure and D&C, pod# 1 Admitted by medicine dept for elevated BP's VSS Afebrile doing well All questions were answered Discussed when to call May be discharged in steel manager respect D/C home per medical team Results & Data ([facility]) Vital Signs (Past 12 Hours) Vital Signs Temp Pulse Pulse Resp BP Pulse Ox 06/26/20 07:08 37.0 C 81 19 138/83 95 06/26/20 04:13 37.1 C 78 20 123/74 94 06/26/20 00:26 37.0 C 80 19 137/79 95 06/25/20 23:03 89
[2020-06-26] MEDS ORDERED: MAGNESIUM OXIDE 400 MG TAB PO SCH (09:00)
[2020-06-26] MEDS ORDERED: CEROVITE ADV FORMULA TAB PO SCH (09:00)
[2020-06-26] MEDS ORDERED: CALCIUM CARBONATE 1250MG TAB PO SCH (09:00)
[2020-06-26 11:53] VITALS: BP 146/81; PULSE 74; TEMP 98.1; O2SAT 93
--- NOTE | 2020-06-26 12:00 | Hospitalist Progress Note ---
Date of Service June 26, 2020 Assessment & Plan (1) Chest pain: (2) Uncontrolled hypertension: Not on any antihypertensives at home TSH: Normal Troponin: Negative EKG: No signs of acute ischaemia --ECHO: The left ventricle size is normal. Mild concentric LVH. Left ventricular wall motion is normal. EF 65 to 70%. Trivial muscular VSD near the apex of known hemodynamic significance. The right ventricle is normal in size. Doppler findings do not suggest pulmonary hypertension. Started on lisinopril/HCTZ: 20/12.5mg daily BP better today Advised low salt diet Recommended to be evaluated by Cardiology as outpatient for further evaluation of VSD Elevated D-Dimer: CTA: No pulmonary emboli identified. No acute findings within the chest. Linear opacities within the lungs consistent with atelectasis. Mild cardiomegaly. Venous Doppler:No DVT within the right or left lower extremity. (3) Status post D&C: POD #1 D&C, hysteroscopy with polypectomy by Dr. Thacker Appreciate ADVERTISING MANAGER Input Minimal Vagina bleeding--Expected post procedure DVT Px: SCDs Code Status Full Code Disposition: Plan to discharge home today Admission and Anticipated Discharge Date Admission Date: June 25, 2020 Subjective Patient is seen and examined at bedside Doing well today Denies any significant pain at site of procedure Denies chest pain, shortness of breath, dizziness, nausea, abdominal pain Eager to get discharged Blood pressure is much better today Also denies headache, change in vision Review of Systems Review of Systems: All systems reviewed & are unremarkable except as noted in HPI & below Physical Exam Physical Exam: Physical Exam: Vitals signs as noted above General Appearance:Moderately built and nourished, no apparent distress Head: normocephalic, Atraumatic Eyes: normal inspection, EOMI Neck: supple, Trachea midline Respiratory/Chest: Normal breath sounds, CTA Cardiovascular: S1, S2, + Systolic murmur Abdomen/GI:Soft, Non tender, Bowel sounds present Extremities/Musculoskelatal:normal inspection, Trace edema Neurologic/Psych:AAOX3, grossly no focal neurological deficits Skin: normal color, warm Results & Data Results & Data ([facility]) Vital Signs (Past 12 Hours) Vital Signs Temp Pulse Resp BP BP Pulse Ox 06/26/20 11:52 36.7 C 74 18 146/81 H 93 06/26/20 07:08 37.0 C 81 19 138/83 95 06/26/20 04:13 37.1 C 78 20 123/74 94 06/26/20 00:26 37.0 C 80 19 137/79 95 Laboratory Results Short CBC 06/26/20 Range/Units 06:13 WBC 9.04 (4.8-10.8) K/uL Hgb 12.9 (12.0-16.0) g/dL Hct 40.1 (37-47) % Plt Count 207 (130-400) K/uL BMP 06/26/20 06:13 Sodium 139 Potassium 3.5 Chloride 105 Carbon Dioxide 27 BUN 10 Creatinine 0.66 Glucose 114 H Calcium 9.7
--- NOTE | 2020-06-26 14:38 | Discharge Summary ---
Date of Service June 26, 2020 Admission HPI Per Admitting Provider This is a 55-year-old [place] female who has a significant past medical history of uncontrolled hypertension, anxiety, dysfunctional uterine bleeding who presents to [facility] today for elective D&C, hysteroscopy and polypectomy by Carlene Thacker. Patient tolerated the procedure well; however, postoperatively patient remained significantly hypertensive despite attempts to reduce blood pressure with IV antihypertensives. Patient does not take any prescription medications at baseline and takes homemade herbal remedies. She states at baseline her blood pressure is typically systolically 160-1 80 over 90s to 100s. She does not monitor her blood pressure on a regular basis. She does not see any primary care provider. In ASU patient did develop left-sided nonradiating chest discomfort at approximately 9:50 AM and lasted for 20 minutes. Currently chest pain has resolved. She described it as an ache/heaviness. She does admit to feeling similar chest discomfort in past but is unsure during which scenario this occurred. She denies any associated shortness of breath, diaphoresis, nausea, dizziness, lightheadedness, headache, change in vision, change in hearing. Postoperatively she does elicit some mild lower abdominal discomfort but denies any fever, chills, sweats, palpitations, emesis, dysuria, increased urgency or frequency with urination, melena, medic easier. She did urinate postoperatively without difficulty. at bedside states they cook with raw salt and no processed foods. Denies NSAID use. We have been called down by anesthesiology to evaluate for possible admission. is at bedside. In ASU patient's blood pressure was 150s over 100, 160/90 and eventual 181/117. During the latter she did develop left-sided chest discomfort which has since resolved. She has received a total of 50 mg of IV labetalol, last given at 8:56 AM as well as 20 mg of IV hydralazine, last given at 9:43 AM. She also received 5 mg of IV metoprolol around 10:20 AM. EKG was ordered which revealed sinus tachycardia with no ST or T wave changes. Ventricular rate was 101 bpm. Admission Exam Per Admitting Provider Physical Exam Physical Exam: Constitutional: WD/WN, female, vitals as above, NAD, sitting up in bed, pleasant, answers questions appropriately, minimal eye contact, frequently looking at Head: Normocephalic, Atraumatic Eyes: PERRL, conjunctivae normal, anicteric sclerae ENMT: external ear and nose normal, oropharynx normal Neck: trachea midline, no thyromegaly normal visual inspection Respiratory: normal respiratory effort, lungs clear to auscultation, no wheeze, rales, rhonchi. Normal insp/exp effort, no accessory muscle use Cardiovascular: RRR, 2/6 KATHRYN noted RUSB, no radiation, bilateral lower extremity lymphedema, varicosities noted, bilateral teds in place vessels: no JVD or carotid bruit Chest: normal inspection of chest Abdomen: normal bowel sounds, soft, mild discomfort to palpation to lower abdomen, no rebound, no guarding, no rigidity,no hepatosplenomegaly Musculoskeletal: no cyanosis or clubbing, extremities motor strength 5/5 Skin: no rashes, warm and dry normal turgor Neurologic: PERRL, EOMI, accommodation nl, no face palsy, no dysarthria CN's II-XI intact bilaterally and moves all extremities Psychiatric: A+Ox3, euthymic affect Lymphatic: no cervical or axillary lymphadenopathy : deferred Principal Diagnosis Abnormal Uterine Bleeding, Endometrial Polyp Uncontrolled Hypertension VSD--Incidental finding Discharge Data Allergies Allergy/AdvReac Type Severity Reaction Status Date / Time No Known Allergies Allergy Verified 06/25/20 05:59 Consultations 06/25/20 10:42 Consult Gynecology Routine Procedures Performed Operation Date: 06/25/20 07:00 Actual Procedures p Evaluation Under Anesthesia, Hysteroscopy Polypectomy with Myosure(Not Applicable) - Kala Daniel MD s Dilation and Curettage(Not Applicable) - Kala Daniel MD --ECHO: The left ventricle size is normal. Mild concentric LVH. Left ventricular wall motion is normal. EF 65 to 70%. Trivial muscular VSD near the apex of known hemodynamic significance. The right ventricle is normal in size. Doppler findings do not suggest pulmonary hypertension. CTA: No pulmonary emboli identified. No acute findings within the chest. Linear opacities within the lungs consistent with atelectasis. Mild cardiomegaly. Venous Doppler:No DVT within the right or left lower extremity. Ordered Studies 06/25/20 10:40 US venous doppler LE BI Routine 06/25/20 14:11 CT angio chest PE protocol Urgent Hospital Course (1) Chest pain: (2) Uncontrolled hypertension: Not on any antihypertensives at home TSH: Normal Troponin: Negative EKG: No signs of acute ischaemia --ECHO: The left ventricle size is normal. Mild concentric LVH. Left ventricular wall motion is normal. EF 65 to 70%. Trivial muscular VSD near the apex of known hemodynamic significance. The right ventricle is normal in size. Doppler findings do not suggest pulmonary hypertension. Started on lisinopril/HCTZ: 20/12.5mg daily BP better today Advised low salt diet Recommended to be evaluated by Cardiology as outpatient for further evaluation of VSD Elevated D-Dimer: CTA: No pulmonary emboli identified. No acute findings within the chest. Linear opacities within the lungs consistent with atelectasis. Mild cardiomegaly. Venous Doppler:No DVT within the right or left lower extremity. (3) Status post D&C: POD #1 D&C, hysteroscopy with polypectomy by Dr. Thacker Appreciate SAMPLE PREP TECHNICIAN Input Minimal Vagina bleeding--Expected post procedure DVT Px: SCDs Code Status Full Code Disposition: Plan to discharge home today Total Time Total Time Spent Total Time Spent (In Minutes): 39 minutes Total Time Includes: Examination of the Patient, Discharge Planning, Medication Reconciliation, Communication With Other Providers and Other Discharge Plan Discharge Items Patient Disposition: Home - Self-Care Reason For Visit: Abnormal Uterine Bleeding Endometrial Polyp Discharge Diagnosis: Abnormal Uterine Bleeding, Endometrial Polyp Uncontrolled Hypertension Activity: Per Instructions section Exercise/Sports: Gradually increase as tolerated Non-emergency contact: Primary Care Provider and Bench Lathe Operator Call non-emergency contact if: you have any medication questions, your symptoms worsen, your pain is not controlled, your pain is worsening, your pain is unusual for you, you have a fever and your temperature is above 101 Follow-up/Referrals: PCP,NO [Primary Care Provider] - Diet: Heart Healthy Addtl Attending Provider Instructions: Follow up with your Primary Care Physician Dr. Nate Baker on Jul 01, 2020 at 12:00 PM at [address] Follow up with your Rfid Strategist as recommended by your physician Take medications regularly as prescribed. Seek immediate medical attention if your symptoms reoccur or worsen ACTIVITY RECOMMENDATIONS: * Avoid tampons, douching, hot tubs, pools, and intercourse until bleeding has stopped. * May shower as usual. * No strenuous activity for 24-48 hours. After 24-48 hours, you can do anything you feel like doing (driving and sports are okay). RETURN TO SCHOOL/WORK: * You may return to school or work after 24 hours unless specified by your physician. DIET: * Resume previous diet. MEDICATIONS: Resume previous medications unless instructed otherwise by your surgeon. Medications are over the counter. Tylenol 1000 mg may be taken every 6 hours, for the first 72 hours after surgery. A heating pad is also recommended to relieve pain. Medication should be taken with food or milk. do not take on an empty stomach. SPECIAL CARE INSTRUCTIONS: * Check temperature twice daily for one week. Report any elevation over 101 degrees. * Call office if you experience increased pelvic pain or discomfort not relieved by pain medicine, if you have foul smelling vaginal discharge, if you have bleeding that is heavier than a normal menstrual flow. If you are changing a maxi pad every 1- 2 hours, this is too heavy. vaginal spotting is normal for 1-2 weeks. *Please call your primary care physician for follow up of high blood pressure, this was noted during your stay and should be addressed. FOLLOW UP VISIT: Your follow up appointment has been scheduled for 07/20/20 at 8:30 AM. Pending Studies at Discharge: Yes Studies:: surgical pathology Stand-Alone Forms: My [facility] Medications and DC Order Prescriptions: New lisinopril-hydrochlorothiazide 20-12.5 mg Tablet 1 tab PO QAM 30 Days Qty: 30 RF: 0 Continued multivitamin with minerals Combo Pack 1 pkg PO QAM RF: 0 Calcium Magnesium 500 mg calcium -250 mg Tablet 1 tab PO QAM RF: 0 ascorbic acid (vitamin C) 1,000 mg Capsule, Extended Release 2 cap PO BID RF: 0 Liver Complex 250-250 mg Tablet 1 tab PO BID RF: 0 Discharge Orders: Discharge Order (Routine); Ordered 06/26/20 Ordered By: Donnell Bashir Admission Data Admit Date/Time: 06/25/20 10:36 Attending Provider: Kala Daniel Admit Provider: Donnell Bashir Primary Care Provider: PCP,NO Other Providers: Kala Daniel Other Interventions: Discharge Summary Assessment (RN) Last Done: 06/26/20 12:31
--- NOTE | 2020-06-27 07:43 | Electrocardiogram Report ---
Test Reason : Blood Pressure : / mmHG Vent. Rate : 101 BPM Atrial Rate : 101 BPM P-R Int : 172 ms QRS Dur : 082 ms QT Int : 338 ms P-R-T Axes : 027 012 017 degrees QTc Int : 438 ms Sinus tachycardia Otherwise normal ECG When compared with ECG of 09-JUN-2020 13:57, Vent. rate has increased BY 38 BPM Confirmed by Kye Mckeon ([id number]) on 06/27/2020 7:42:43 AM Referred By: Kala Daniel Confirmed By:Kye Mckeon
--- NOTE | 2020-06-27 08:37 | Electrocardiogram Report ---
Test Reason : Blood Pressure : / mmHG Vent. Rate : 077 BPM Atrial Rate : 077 BPM P-R Int : 176 ms QRS Dur : 084 ms QT Int : 382 ms P-R-T Axes : 043 040 029 degrees QTc Int : 432 ms Normal sinus rhythm Possible Left atrial enlargement Nonspecific T wave abnormality Abnormal ECG When compared with ECG of 25-JUN-2020 09:53, (unconfirmed) No significant change was found Confirmed by Kye Mckeon ([id number]) on 06/27/2020 8:36:46 AM Referred By: Kala Daniel Confirmed By:Kye Mckeon
== END 2020-06-26 13:41 | disposition home or self-care (01) ==
LOC: ASU 05:41 → 2W 05:41
DX: N92.0 Excessive and frequent menstruation with regular cycle; N84.1 Polyp of cervix uteri; N93.9 Abnormal uterine and vaginal bleeding, unspecified; I10 Essential (primary) hypertension; N85.00 Endometrial hyperplasia, unspecified